=== PATIENT | female | born 1980 | race Caucasian/White ===

== ENCOUNTER → 2017-02-14 | Outpatient (CLI) | payer BC ==
[2016-09-04 19:00] VITALS: BP 90/52
[~2017-02-14] MED LIST: ATOR40TA59 PO; DOCU100C PO; HYDR-971 PO; INUL1TAB4 PO; L.AC1CAP6 PO
--- NOTE | 2017-02-14 09:36 | RAD ---
Right upper quadrant abdominal ultrasound, 02/14/2017: History: Elevated liver enzymes The gallbladder is surgically absent. The common hepatic duct is of normal caliber. The hepatic echogenicity is mildly increased in a diffuse pattern. The liver measures 18 cm in craniocaudad extent at the level of the right lobe. No hepatic mass is evident. The visualized portions of the pancreas and right kidney are unremarkable. IMPRESSION: 1. Status post cholecystectomy. 2. Mildly increased hepatic echogenicity, most commonly due to hepatic steatosis.
== END | disposition home or self-care (01) ==
LOC: US 08:30
PROVIDERS: ATTEND Family Medicine
DX: K76.0 Fatty (change of) liver, not elsewhere classified (principal); Z90.49 Acquired absence of other specified parts of digestive tract
CPT/HCPCS: 76705

== ENCOUNTER → 2018-05-25 | Outpatient (CLI) | payer BC ==
[2016-09-04 19:00] VITALS: BP 90/52
[~2018-05-25] MED LIST changes: +DOCU-150 PO; -DOCU100C PO
--- NOTE | 2018-05-25 17:13 | RAD ---
CT ABDOMEN PELVIS WO CONTRAST Indication: Hematuria, nausea, bilateral flank pain and right lower back pain 12 hrs. Hysterectomy with one remaining ovary Exposure: One or more of the following individualized dose reduction techniques were utilized for this examination: 1. Automated exposure control 2. Adjustment of the mA and/or kV according to patient size 3. Use of iterative reconstruction technique. Comparison: None are available. Contrast: No intravenous contrast given. No oral contrast per request. Evaluation of solid viscera, bowel and vasculature is compromised by the noncontrast technique. Lower thorax: Lung bases are clear. Liver: Mildly enlarged, 19.8 cm cephalocaudal. Spleen: Unremarkable Pancreas: Unremarkable Adrenals:No evidence of mass. Kidneys: No focal lesion. Urinary tracts: Small 4 mm nonobstructive right lower pole renal calculus. Gallbladder: Surgically absent Aorta: Nonaneurysmal. Lymph nodes: Small retroperitoneal and mesenteric lymph nodes are seen, measuring up to 5 mm short axis, likely reactive. GI tract: Mild retained stool. No evidence of acute colitis or obstruction. Appendix is normal. Reproductive organs: Small ovarian cysts or follicles measure up to 13 mm. Urinary bladder: Unremarkable. Peritoneum: No evidence of pneumoperitoneum. No free fluid. Abdominal wall: Unremarkable Spine: There appears to be a calcified disc bulge or herniation at the lumbosacral junction Bones: No destructive process identified. IMPRESSION: 1. Small 4 mm nonobstructive calculus in lower pole the right kidney. No evidence of hydronephrosis or ureteric obstruction. 2. Assuming the patient still has a left ovary, there are small left ovarian cysts measuring up to 13 mm. Patient states a history of removal of one ovary. 3. Mild hepatomegaly. Electronically signed by: Adryan Jackman MD (05/25/2018 5:09 PM) [email or web address]
== END | disposition home or self-care (01) ==
LOC: CT 16:34
PROVIDERS: ATTEND Family Medicine
DX: N28.1 Cyst of kidney, acquired (principal); E78.00 Pure hypercholesterolemia, unspecified; R16.0 Hepatomegaly, not elsewhere classified; Z87.891 Personal history of nicotine dependence; Z90.49 Acquired absence of other specified parts of digestive tract; Z90.710 Acquired absence of both cervix and uterus
CPT/HCPCS: 74176